=== PATIENT | female | born 1975 | race African-American/Black ===

== ENCOUNTER 2018-03-11 13:19 | Inpatient (IN) | payer OTHER ==
[~2018-03-11] VITALS: Ht 162.6 cm; Wt 97.9 kg
[~2018-03-11 13:19] MED LIST: IBUPROFEN 600600 M1 PO; NORVASC 5 MG TAB5 MG PO; TESSALON PERLE100 MG PO
[2018-03-11 14:13] VITALS: BP 134/83
[2018-03-11 14:14] LABS: URINE CLARITY CLEAR; URINE COLOR STRAW; URINE GLUCOSE-RANDOM* 2+ (Negative); URINE KETONES 2+ (Negative); URINE PROTEIN (DIPSTICK) 1+ (Negative); URINE SPECIFIC GRAVITY > 1.030 (1.005-1.035)
[2018-03-11 14:15] LABS: URINE BILIRUBIN NEGATIVE (Negative); URINE BLOOD 2+ (Negative); URINE LEUKOCYTES-REFLEX NEGATIVE (Negative); URINE NITRITE-REFLEX NEGATIVE (Negative); URINE UROBILINOGEN 0.2 E.U./dl (0.2-1.0)
[2018-03-11 14:16] LABS: SQUAMOUS >10 Many /LPF (0-3)
[2018-03-11 14:17] LABS: URINE RBC 0-2 Rare /HPF (0-2); URINE WBC-REFLEX 0-5 Rare /HPF (0-5)
[2018-03-11 14:18] LABS: BACTERIA-REFLEX 1-9 Few /HPF (None Seen); CASTS None Seen /LPF (None Seen); CRYSTALS None Seen /LPF (None Seen)
[2018-03-11 16:00] LABS: HEMATOCRIT 44.2 % (37.0-47.0); HEMOGLOBIN 15.1 gm/dL (12.0-15.0); MCH 29.8 pg (26.0-34.0); MCHC 34.2 g/dL (28.0-37.0); MCV 87.2 fL (80.0-100.0); RBC 5.07 mil/uL (4.20-5.00); RDW 14.7 % (10.5-14.5); WBC 8.4 thou/uL (4.0-11.0)
[2018-03-11 16:08] LABS: CALCIUM 9.9 mg/dL (8.5-10.1); CREATININE 1.2 mg/dL (0.6-1.0); POTASSIUM 3.9 mmol/L (3.5-5.1)
[2018-03-11 16:13] LABS: ALBUMIN 3.9 g/dL (3.4-5.0); TOTAL BILIRUBIN 0.7 mg/dL (<0.1-1.0); TOTAL PROTEIN 8.9 g/dL (6.4-8.2)
[2018-03-11 17:11] VITALS: BP 144/91
[2018-03-11 17:17] VITALS: BP 134/83
[2018-03-11 17:50] VITALS: BP 123/74
[2018-03-11 19:30] VITALS: BP 106/60
[2018-03-11 20:08] VITALS: BP 123/74
[2018-03-12 03:24] VITALS: BP 112/78
[2018-03-12 05:28] LABS: BASOPHILS 0.7 % (0.0-2.0); HEMATOCRIT 36.7 % (37.0-47.0); LYMPHOCYTES 29.5 % (24.0-44.0); MCHC 33.4 g/dL (28.0-37.0); MONOCYTES 9.7 % (1.0-8.0); PLATELET COUNT 205 thou/uL (150-400); POLYS 55.1 % (36.0-66.0); RBC 4.22 mil/uL (4.20-5.00); WBC 7.3 thou/uL (4.0-11.0)
[2018-03-12 05:32] LABS: HEMOGLOBIN 12.3 gm/dL (12.0-15.0)
[2018-03-12 05:36] LABS: CALCIUM 8.3 mg/dL (8.5-10.1); MAGNESIUM 1.8 mg/dL (1.8-2.4); POTASSIUM 3.8 mmol/L (3.5-5.1)
[2018-03-12 07:55] VITALS: BP 101/68
[2018-03-12 16:56] VITALS: BP 122/79
[2018-03-12 19:25] VITALS: BP 120/66
[2018-03-12 23:09] LABS: GLYCOHEMOGLOBIN (HGB A1C) 11.3 % (4.8-5.6)
[2018-03-13 04:09] LABS: HEMATOCRIT 36.4 % (37.0-47.0); HEMOGLOBIN 12.1 gm/dL (12.0-15.0); MCH 29.1 pg (26.0-34.0); MCHC 33.2 g/dL (28.0-37.0); MCV 87.5 fL (80.0-100.0); RBC 4.15 mil/uL (4.20-5.00); RDW 14.8 % (10.5-14.5); WBC 4.7 thou/uL (4.0-11.0)
[2018-03-13 04:12] LABS: CALCIUM 8.6 mg/dL (8.5-10.1); CREATININE 0.8 mg/dL (0.6-1.0); POTASSIUM 3.6 mmol/L (3.5-5.1)
[2018-03-13 04:34] VITALS: BP 101/67
[2018-03-13 08:07] VITALS: BP 122/80
[2018-03-13 16:35] VITALS: BP 124/72
[2018-03-13 19:51] VITALS: BP 121/71
[2018-03-14 04:12] VITALS: BP 123/75
[2018-03-14 07:35] VITALS: BP 134/88
--- NOTE | 2018-03-14 08:51 | HC ---
[facility] [address] [place] [address] CONSULTATION Name: MICAELA ALVAREZ Room #: 423-1 ADM IN M.R.#: [id number] Admission: 03/11/18 Attend Phys: Amando Kyle MD Discharge: Date of : 77 Report #: [id number] THIS REPORT FOR: //name// CC: FAM unknown Amando Kyle DATE OF SERVICE: 03/13/2018 PERSONAL PHYSICIAN: None on staff. CHIEF COMPLAINT: Right labial wound. HISTORY OF PRESENT ILLNESS: This is a 42-year-old black female who presented to the Emergency Department with poor appetite, polyuria, blurry vision, nausea, weakness, which had been progressing over the past several days. The patient states approximately a week ago, she noted what she thought was a boil in her right labial and groin area. The patient states she has had these multiple times in the past. They, however, seem to resolve spontaneously; however, this started to get again progressively larger and more painful, prompting her to come to the Emergency Department to be further evaluated. In the Emergency Department, she was found to have new onset diabetes as well as an abscess in her right groin. The patient was admitted to the hospital for IV antibiotics, surgical debridement and we have been asked to follow the wound now that has been surgically debrided. The patient admits to the fact that she has had previous boils in her groin region in the past. PAST MEDICAL HISTORY: Significant for hypertension and other newly diagnosed diabetes, history of multiple boils in her labial and groin area. CURRENT MEDICATIONS: At this time were ibuprofen and Norvasc. DRUG ALLERGIES: PENICILLIN. SOCIAL HISTORY: The patient smokes cigars 1 a day. Socially drinks alcohol. FAMILY HISTORY: Not pertinent to current medical condition. REVIEW OF SYSTEMS: CONSTITUTIONAL: The patient denies fevers or chills. NEUROLOGIC: The patient complains of overall generalized weakness, progressive over the past several days, but no isolated weakness in arms or legs. EYES: The patient complains of blurry vision recently. ENT: No complaints. CARDIAC: The patient denies chest pain, palpitations, or peripheral edema. RESPIRATORY: The patient denies shortness of breath, cough or wheezes. GASTROINTESTINAL: The patient has had nausea lately with decreased appetite, [address] [address] CONSULTATION Name: MICAELA ALVAREZ Room #: 423-1 ADM IN .R.#: [id number] Admission: 03/11/18 Attend Phys: Amando Kyle MD Discharge: Date of : 77 Report #: [id number] but no vomiting or diarrhea. GENITOURINARY: The patient denies urgency or frequency. MUSCULOSKELETAL: No complaints. SKIN: There is a draining abscess in the right labial region. PHYSICAL EXAMINATION: VITAL SIGNS: Temperature 36.3, pulse 85, respirations 18, BP 121/71. GENERAL: This is an alert and oriented x 3, pleasant black female, who is in mild distress secondary to pain. HEENT: Normocephalic and atraumatic. Mucous membranes are moist. Pupils are round. Sclerae white. NECK: Supple, nontender. LUNGS: Clear. HEART: Regular without murmur. ABDOMEN: Obese, soft, otherwise nontender. EXTREMITIES: Evaluation of the groin reveals a fluctuant lesion in the right labial/groin region, which is approximately 5 cm. Central portion is actually spontaneously draining. Underneath is an area of induration and tenderness and mild fluctuance. There is mild increased warmth at the site. This does not extend anywhere other than where it is located. There is nothing noted on the left groin or labial region. EXTREMITIES: The patient moves all extremities without difficulty. NEUROLOGIC: Cranial nerves 2-12 are grossly intact. Motor and sensory grossly intact. LABORATORY VALUES: White count 4.7, hemoglobin 12.1. Today this morning, her blood glucose is 246, hemoglobin A1c is 11.3, albumin is 3.9. IMPRESSION: 1. Right labial/groin abscess consistent with hidradenitis suppurativa. 2. Newly diagnosed diabetes mellitus. 3. Hypertension. PLAN: I spoke at length with the patient. At this time, the abscess is spontaneously draining. We can watch it for the next 24 hours and see how much the inflammation goes down with the antibiotics. If it is still persistent fluctuance and purulent drainage, we can do a bedside I and D with mild sedation. The patient is agreeable to this. Continue IV antibiotics at this time as well as continue to maximize the patient's oral protein supplementation for continued healing and we will continue to follow the patient. I appreciate the ability to consult. <ELECTRONICALLY SIGNED> By: Adarsh Hoffmann MD 03/14/18 [id number] Adarsh Hoffmann MD /nt
[2018-03-14] MEDS ORDERED: BACTRIM DS TAB1 EACH PO (16:53)
[2018-03-14] MEDS ORDERED: GLUCOPHAGE500 MG PO (16:54)
[2018-03-14] MEDS ORDERED: GLYBURIDE 5 MG T5 M1 PO (16:55)
[2018-03-14 17:54] VITALS: BP 134/88
[2018-03-14 18:05] VITALS: BP 134/88
[2018-03-14 19:17] VITALS: BP 134/88
[2018-03-14 19:18] VITALS: BP 134/88
== END 2018-03-14 18:47 | disposition home or self-care (01) | DRG 682 ==
LOC: ER 13:19 → 4E 16:39 → EROBS 16:39 → 4E 17:32 → ENTRNSPT 03-14 18:40 → 4E 03-14 18:47
PROVIDERS: Emergency Medicine; Hospitalist; Nurse Practitioner; ADMIT Internal Medicine
DX: N17.0 Acute kidney failure with tubular necrosis (principal); E11.10 Type 2 diabetes mellitus with ketoacidosis without coma; N76.4 Abscess of vulva; L02.215 Cutaneous abscess of perineum; L02.214 Cutaneous abscess of groin; I10 Essential (primary) hypertension; F17.210 Nicotine dependence, cigarettes, uncomplicated; L73.2 Hidradenitis suppurativa; E11.65 Type 2 diabetes mellitus with hyperglycemia; R00.0 Tachycardia, unspecified; N94.6 Dysmenorrhea, unspecified; N92.0 Excessive and frequent menstruation with regular cycle; E28.2 Polycystic ovarian syndrome; Z28.21 Immunization not carried out because of patient refusal; Z88.0 Allergy status to penicillin; Z83.3 Family history of diabetes mellitus; Z71.6 Tobacco abuse counseling; Z79.899 Other long term (current) drug therapy
CPT/HCPCS: 10084